=== PATIENT | female | born 1960 | race African-American/Black ===

== ENCOUNTER 2017-06-07 05:33 | Emergency (ER) | payer OTHER ==
[~2017-06-07] VITALS: Ht 170.2 cm; Wt 90.7 kg
[~2017-06-07 05:33] MED LIST: ASPIRIN325 M2 PO; ATORVASTATIN CA40 M1 PO; FLEXERIL10 MG PO; GABAPENTIN300 M2 PO; GLYBURIDE5 M1 PO; INVOKANA300 M1 PO; LOSARTAN POTAS100 M1 PO; METFORMIN HCL500 M3 PO; MOTRIN800 MG PO; NAPROXEN500 M1 PO; OMEPRAZOLE40 M1 PO; PERCOCET 5-3251 EACH PO; PLAVIX75 M1 PO; ZOFRAN ODT4 MG SL
--- NOTE | 2017-06-07 06:21 | ED GI/GU/ABDOMINAL COMPLAINT ---
History of Present Illness General Chief Complaint: Abdominal Pain/Flank Pain Stated Complaint: PT C/O ABD PAIN +N/V/D Source: patient, family, old records Exam Limitations: no limitations Vital Signs & Intake/Output Vital Signs & Intake/Output Vital Signs Date Time Temp Pulse Resp B/P B/P Pulse O2 O2 Flow FiO2 Mean Ox Delivery Rate 06/07 1050 97.9 88 18 178/76 98 Room Air 06/07 0828 98.2 92 18 198/86 96 Room Air 06/07 0555 98 Room Air Room Air 06/07 0548 95.8 108 16 131/85 96 Room Air Room Air Triage Note: 56YO FEMALE TO TRIAGE W/CO "SOUR STOMACH" STATES SHE "HAD N,V,D OVER THE WEEKEND, FELT BETTER BY SATURDAY BUT LAST NIGHT, HAS FEELING OF NAUSEA BUT HAS NOT VOMITED. Triage Nurses Notes Reviewed? yes LMP (ages 10-50): post menopausal ? n Is pt currently ? No Onset: Last week Duration: day(s):, constant, continues in ED, getting worse Timing: recent history Quality/Severity: aching, fullness, moderate, severe, vomiting Location: generalized abdomen Radiation: no radiation Activities at Onset: rest Prior Abdominal Problems: none Modifying Factors: Worsens With: eating. Associated Symptoms: abdominal pain, heartburn, loss of appetite, nausea/ vomiting HPI: 5 days prior to admission patient complains of anorexia nausea vomiting after eating with frequent loose watery stools. She also complains of progressive generalized abdominal pain nonradiating waxing and waning lots of burping gas. She denies fever chills chest pain cough shortness of breath headache dysuria rash bleeding (Stone Carlson MD) Allergies Coded Allergies: NO KNOWN ALLERGIES (NONE 06/07/17) Reconcile Medications Aspirin (Aspirin*) 325 MG TABLET 1 TAB PO DAILY CAD (Reported) Atorvastatin Calcium 40 MG TABLET 1 TAB PO DAILY CHOLESTEROL (Reported) Clopidogrel Bisulfate (Plavix) 75 MG TABLET 1 TAB PO DAILY CARDIAC STENTS ( Reported) Empagliflozin (Jardiance) 10 MG TABLET 1 TAB PO DAILY DIABETES (Reported) Ergocalciferol (Vitamin D2) (Vitamin D2) 2,000 UNIT TABLET 1 TAB PO DAILY VITAMIN SUPPORT (Reported) Exenatide Microspheres (Bydureon Bcise) 2 MG/0.85 ML AUTO.INJCT 1 INJ SC Tu DIABETES (Reported) Gabapentin 300 MG CAPSULE 1 CAP PO 4X PER DAY NEUROPATHY (Reported) Levomefolate/B6/B12/Algal Oil (Metanx Capsule) 3 MG-35 MG-2 MG-90.314 MG CAPSULE 1 CAP PO BID UNKNOWN (Reported) Losartan Potassium 100 MG TABLET 1 TAB PO DAILY HTN (Reported) Metformin HCl 500 MG TABLET 1 TAB PO BID DM II (Reported) Omeprazole 40 MG CAPSULE.DR 1 CAP PO DAILY GERD (Reported) (Poppy CHOUDHARY,Solo Millard) Past History Travel History Traveled to [place] past 21 day No Medical History Any Pertinent Medical History? see below for history Neurological: NONE EENT: NONE Cardiovascular: hypertension, hyperlipidemia Respiratory: NONE Gastrointestinal: GERD Hepatic: NONE Renal: NONE Musculoskeletal: NONE Psychiatric: NONE Endocrine: diabetes Blood Disorders: NONE Cancer(s): NONE PILL COATER/Reproductive: NONE History of MRSA: No History of VRE: No History of CDIFF: No Influenza Vaccine: 12/17/16 Tetanus Vaccine: 12/27/12 Surgical History Surgical History: non-contributory Psychosocial History What is your primary language Comoran Tobacco Use: Current Daily Use Daily Tobacco Use Amount/Type: => 5 Cigarettes daily Family History Hx Contributory? No (Stone Carlson MD) Review of Systems Review of Systems Constitutional: Reports: no symptoms. EENTM: Reports: no symptoms. Respiratory: Reports: no symptoms. Cardiovascular: Reports: no symptoms. GI: Reports: see HPI, abdominal pain, diarrhea, distention, nausea, vomiting. Genitourinary: Reports: no symptoms. Musculoskeletal: Reports: no symptoms. Skin: Reports: no symptoms. Neurological/Psychological: Reports: no symptoms. Hematologic/Endocrine: Reports: no symptoms. Immunologic/Allergic: Reports: no symptoms. All Other Systems: Reviewed and Negative (Stone Carlson MD) Physical Exam Physical Exam General Appearance: well developed/nourished, alert, awake, anxious, moderate distress, obese Head: atraumatic, normal appearance Eyes: Bilateral: normal appearance, PERRL, EOMI, normal inspection. Ears, Nose, Throat, Mouth: hearing grossly normal, dry mucous membranes Neck: normal inspection, supple, full range of motion, normal alignment Respiratory: normal breath sounds, chest non-tender, no respiratory distress, quiet respiration, lungs clear Cardiovascular: regular rate/rhythm, normal peripheral pulses, norml femoral pulses equa Peripheral Pulses: 4+ carotid (R), 4+ carotid (L) Gastrointestinal: soft, non-tender, no organomegaly, distention Back: normal inspection, normal range of motion Extremities: normal range of motion, no ligament instability Neurologic/Psych: no motor/sensory deficits, awake, alert, oriented x 3, normal gait, normal mood/affect Skin: intact, normal color, warm/dry Core Measures ACS in differential dx? No Sepsis Present: No Sepsis Focused Exam Completed? No (Robyn CHOUDHARY,Stone) Progress Differential Diagnosis: appendicitis, biliary colic, cholecystitis, diverticulitis, gastritis, pancreatitis, UTI/pyelo Plan of Care: Orders Procedure Date/time Status URINALYSIS 06/07 804 Complete MAGNESIUM 06/07 602 Complete LIPASE 06/07 602 Complete LACTIC ACID 06/07 602 Complete COMPREHENSIVE METABOLIC PANEL 06/07 602 Complete CBC WITHOUT DIFFERENTIAL 06/07 602 Complete ACETONE 06/07 602 Complete Current Medications Sig/Marlin Start time Last Medication Dose Stop Time Status Admin Clopidogrel Bisulfate 75 MG DAILY 06/07 1000 UNVr 06/07 (Plavix) 1058 Losartan Potassium 100 MG DAILY 06/07 1000 UNVr 06/07 (Cozaar) 1058 Metformin HCl 500 MG BID 06/07 1000 UNVr 06/07 (Glucophage) 1058 Gabapentin 300 MG .[4X PER DAY] 06/07 0900 UNVr (Neurontin) Laboratory Tests 06/07/17 0903: Lactic Acid Cancelled 06/07/17 0807: Urine Color YEL, Urine Clarity CLEAR, Urine pH 6.0, Ur Specific [place] 1.010, Urine Protein NEG, Urine Ketones 15 H, Urine Nitrite NEG, Urine Bilirubin NEG, Urine Urobilinogen 0.2, Ur Leukocyte Esterase NEG, Ur Microscopic EXAM NOT REQUIRED, Urine Hemoglobin NEG, Urine Glucose >=1000 H 06/07/17 0615: Anion Gap 13, Estimated GFR > 60, BUN/Creatinine Ratio 20.0, Glucose 168 H, Lactic Acid 1.0, Calcium 9.6, Magnesium 1.6, Total Bilirubin 0.9, AST 20, ALT 24 , Alkaline Phosphatase 87, Total Protein 7.1, Albumin 3.7, Globulin 3.4, Albumin /Globulin Ratio 1.1, Lipase 64, CBC w Diff MAN DIFF ORDERED, RBC 4.54, MCV 91.9, MCH 29.8, MCHC 32.4 L, RDW 15.4 H, MPV 7.8, Gran % 70.6, Lymphocytes % 18.1 L , Monocytes % 9.0, Eosinophils % 1.8, Basophils % 0.5, Absolute Granulocytes 11.3 H, Segmented Neutrophils 67, Absolute Lymphocytes 2.9, Lymphocytes 18 L, Monocytes 10 H, Absolute Monocytes 1.4 H, Eosinophils 5, Absolute Eosinophils 0.3, Absolute Basophils 0.1, Platelet Estimate ADEQUATE, Polychromasia 1+, Hypochromic-Microcytic 1+, Ovalocytes FEW, Fld Total RBCs Counted 100, Acetone Level NEGATIVE Initial ED EKG: none Hand-Off Endorsed To: Solo Mcwilliams MD Endorsed Time: 0700 Pending: labs, other (diagnostic imaging) (Robyn CHOUDHARY,Stone) Diagnostic Imaging: Discussed w/RAD: CT Scan. Radiology Impression: PATIENT: ANITA VALERO PRESENT AGE: 56 PATIENT ACCOUNT NO: [id number] : 61 LOCATION: [facility] ORDERING PHYSICIAN: Stone Carlson MD SERVICE DATE: 06/07/17 EXAM TYPE: CAT - CT ABD & PELVIS W IV CONTRAST EXAMINATION: CT ABDOMEN AND PELVIS WITH CONTRAST CLINICAL INFORMATION: Nausea and vomiting COMPARISON: None TECHNIQUE: Multidetector volumetric imaging was performed of the abdomen and pelvis following IV administration of 95 mL of Optiray 320 intravenous contrast. Sagittal and coronal reformatted images were obtained on the technologist's workstation. DLP: 547 mGy-cm FINDINGS: LUNG BASES: The visualized lung bases are unremarkable. LIVER, GALLBLADDER, AND BILIARY TREE: The liver is normal in size, shape, and attenuation. No focal hepatic lesion or biliary ductal dilatation is present. The gallbladder is unremarkable with no evidence of radiopaque gallstones, gallbladder wall thickening, or obvious pericholecystic inflammatory changes. PANCREAS: Unremarkable. SPLEEN: Unremarkable. ADRENAL GLANDS: Unremarkable. KIDNEYS AND URETERS: The kidneys are normal in size, shape, and attenuation. No hydronephrosis, hydroureter, or calculi seen. No perinephric stranding. BLADDER: Unremarkable. GASTROINTESTINAL TRACT: Normal caliber bowel loops. No inflammatory changes are seen to the bowel wall or to the mesentery. The appendix lies deep in the right pelvis with no acute findings demonstrated. No mesenteric edema, ascites or fluid collections seen. Stomach is fluid distended without remarkable finding. ABDOMINAL WALL: No significant hernia is appreciated. LYMPH NODES: No adenopathy is demonstrated. VASCULAR: There is aortic calcification. No aneurysm. There are postoperative clips along with soft tissue infiltration in the region of the left common femoral vessels. PELVIC VISCERA: Uterine fibroid. OSSEOUS STRUCTURES: Degenerative changes. No acute or suspicious finding. IMPRESSION: 1. No acute abdominal finding. There are postsurgical changes demonstrated in the region of the left common femoral vessels. DICTATED BY: Carmine Sanchez MD DATE/TIME DICTATED:06/07/17729 FRONT OFFICE SPECIALIST:KHADAR DATE/TIME TRANSCRIBED:06/07/17729 CONFIDENTIAL, DO NOT COPY WITHOUT APPROPRIATE AUTHORIZATION. <Electronically signed in Other Vendor System> SIGNED BY: Carmine Sanchez MD 06/07/1743, PATIENT: ANITA VALERO PRESENT AGE: 56 PATIENT ACCOUNT NO: [id number] : 61 LOCATION: [facility] ORDERING PHYSICIAN: Solo Mcwilliams MD SERVICE DATE: 06/07/17 EXAM TYPE: US - US-LIMITED ABDOMEN EXAMINATION: US ABDOMEN LIMITED CLINICAL INFORMATION: Abdominal pain, nausea, history of diabetes. COMPARISON: CT from earlier today TECHNIQUE: Real-time imaging of the right upper quadrant abdominal viscera. FINDINGS: PANCREAS: The visualized proximal portion of the pancreas is unremarkable. The distal portion is obscured secondary to overlying bowel gas. LIVER: The liver demonstrates normal size, contour and echogenicity. No focal lesion or intrahepatic biliary duct dilatation. GALLBLADDER: The gallbladder is physiologically distended without evidence of stones, sludge, polyps, wall thickening or pericholecystic fluid. COMMON BILE DUCT: Normal in caliber measuring 0.6 cm in diameter. RIGHT KIDNEY: No hydronephrosis. No renal calculi or focal parenchymal lesions. The kidney measures 12.5 cm in maximum dimension. FREE FLUID: None. IMPRESSION: No abnormality demonstrated. DICTATED BY: Hi Martinez MD DATE/TIME DICTATED:08/19 FRONT OFFICE SPECIALIST:KHADAR DATE/TIME TRANSCRIBED:06/07/17947 CONFIDENTIAL, DO NOT COPY WITHOUT APPROPRIATE AUTHORIZATION. <Electronically signed in Other Vendor System> SIGNED BY: Hi Martinez MD 06/07/17 0952 Comments: 06/07/2017 7:23:01 AM patient signed out to me by Dr. Carlson at [employer]. 06/07/2017 8:45:11 AM I have updated body on her test results. Upon reevaluation she does appear uncomfortable sitting up in the stretcher. She is experiencing a bilateral mid to lower quadrant abdominal cramping pain and nausea. She states she has been belching a lot with a very sour taste in her mouth. I will order antiemetics and antacids along with a gallbladder ultrasound. 06/07/2017 11:18:02 AM patient states she vomited in the emergency department despite medications but is now feeling a lot better. She states that she only has some residual discomfort but otherwise wishes to go home. (Poppy CHOUDHARY,Solo Millard) Departure Departure Condition: Stable Referrals: Arturo Donahue MD (PCP/Family) Departure Forms: Customer Survey General Discharge Information (Robyn CHOUDHARY,Stone) Departure Disposition: HOME OR SELF CARE Clinical Impression Primary Impression: Abdominal pain Qualifiers: Abdominal location: lower abdomen, unspecified Qualified Code: R10.30 - Lower abdominal pain, unspecified Secondary Impressions: Nausea, vomiting, and diarrhea Additional Instructions: Reglan as needed for nausea or vomiting, Levsin as needed for abdominal cramps. Zantac as prescribed for additional stomach acid control. Clear liquid diet until feeling better then advance as tolerated. Follow-up with your primary care physician for reevaluation on Saturday. Return if any concerns or sudden worsening. Please note that there might be incidental findings in your evaluation that are unrelated to the current emergency department visit. Please notify your primary care doctor about this emergency department visit in order to obtain and review all of the testing performed so that these incidental findings can be monitored as needed. If you had an x-ray performed, please understand that some fractures may not be seen on the initial set of x-rays. If your symptoms persist you might need a repeat set of x-rays to check for such a fracture. If you had a laceration evaluated, please understand that foreign bodies such as glass or wood may not be visible to the naked eye or on plain x-rays. If the wound becomes red, swollen, increasingly more painful or if there is any drainage from the wound, please have it reevaluated by a physician for the possibility of a retained foreign body. If you're unable to follow up as outlined in the discharge instructions please return to the emergency department. Thank you for choosing the [facility] Emergency Department for your care. It was a pleasure to serve you today. Solo Mcwilliams M.D. [facility] Prescriptions: Current Visit Scripts Metoclopramide HCl (Reglan) 1-2 TAB PO Q6 PRN NAUSEA/VOMITING #20 TAB 30 minutes before meals and bedtime Hyoscyamine (Levsin) 1-2 TAB PO Q6P PRN ABDOMINAL CRAMPS #20 TAB Ranitidine HCl (Zantac) 1 TAB PO QPM #30 TAB (Poppy CHOUDHARY,Solo Millard) Critical Care Note Critical Care Note Critical Care Time: 30-74 min (Poppy CHOUDHARY,Solo Millard) ED Attending Observation Initial Observation Note: I have seen and personally examined ANITA VALERO on 06/07/17 at 0619. I agree with the current emergency department documentation. The disposition (admission or discharge) is uncertain at this time, she needs a period of observation for the following reason(s): The ED Nurse caring for this patient has been personally informed as to what the patient is being observed for. (Robyn CHOUDHARY,Stone)
[2017-06-07 06:25] LABS: ABSOLUTE BASOPHIL COUNT 0.1 /CUMM (0.0-0.2); ABSOLUTE EOSINOPHIL COUNT 0.3 /CUMM (0.0-0.7); ABSOLUTE GRANULOCYTE CT 11.3 /CUMM (1.4-6.5); ABSOLUTE LYMPH COUNT 2.9 /CUMM (1.2-3.4); ABSOLUTE MONOCYTE COUNT 1.4 /CUMM (0.10-0.60); BASOPHIL % 0.5 % (0.0-2.0); EOSINOPHIL % 1.8 % (0-5); GRANULOCYTE % 70.6 % (42.2-75.2); HEMATOCRIT 41.7 % (37-47); MEAN CORPUSCULAR HGB 29.8 PG (27.0-31.0); MEAN CORPUSCULAR HGB CONC 32.4 G/DL (33.0-37.0); MEAN CORPUSCULAR VOLUME 91.9 FL (81.0-99.0); MEAN PLATELET VOLUME 7.8 FL (7.4-10.4); PLATELET COUNT 368 /CUMM (130-400); RBC DISTRIBUTION WIDTH 15.4 % (11.5-14.5); RED BLOOD CELL CT 4.54 /CUMM (4.20-5.40)
--- NOTE | 2017-06-07 07:43 | CT SCAN REPORT ---
EXAMINATION: CT ABDOMEN AND PELVIS WITH CONTRAST CLINICAL INFORMATION: Nausea and vomiting COMPARISON: None TECHNIQUE: Multidetector volumetric imaging was performed of the abdomen and pelvis following IV administration of 95 mL of Optiray 320 intravenous contrast. Sagittal and coronal reformatted images were obtained on the technologist's workstation. DLP: 547 mGy-cm FINDINGS: LUNG BASES: The visualized lung bases are unremarkable. LIVER, GALLBLADDER, AND BILIARY TREE: The liver is normal in size, shape, and attenuation. No focal hepatic lesion or biliary ductal dilatation is present. The gallbladder is unremarkable with no evidence of radiopaque gallstones, gallbladder wall thickening, or obvious pericholecystic inflammatory changes. PANCREAS: Unremarkable. SPLEEN: Unremarkable. ADRENAL GLANDS: Unremarkable. KIDNEYS AND URETERS: The kidneys are normal in size, shape, and attenuation. No hydronephrosis, hydroureter, or calculi seen. No perinephric stranding. BLADDER: Unremarkable. GASTROINTESTINAL TRACT: Normal caliber bowel loops. No inflammatory changes are seen to the bowel wall or to the mesentery. The appendix lies deep in the right pelvis with no acute findings demonstrated. No mesenteric edema, ascites or fluid collections seen. Stomach is fluid distended without remarkable finding. ABDOMINAL WALL: No significant hernia is appreciated. LYMPH NODES: No adenopathy is demonstrated. VASCULAR: There is aortic calcification. No aneurysm. There are postoperative clips along with soft tissue infiltration in the region of the left common femoral vessels. PELVIC VISCERA: Uterine fibroid. OSSEOUS STRUCTURES: Degenerative changes. No acute or suspicious finding. IMPRESSION: 1. No acute abdominal finding. There are postsurgical changes demonstrated in the region of the left common femoral vessels.
[2017-06-07] MEDS ORDERED: JARDIANCE10 M1 PO (08:09)
[2017-06-07] MEDS ORDERED: VITAMIN D22000 UNIT PO (08:10)
[2017-06-07] MEDS ORDERED: BYDUREON B2 MG/0.85 SC (08:11)
[2017-06-07] MEDS ORDERED: METANX CAPSULE1 EACH PO (08:12)
--- NOTE | 2017-06-07 09:52 | ULTRASOUND REPORT ---
EXAMINATION: US ABDOMEN LIMITED CLINICAL INFORMATION: Abdominal pain, nausea, history of diabetes. COMPARISON: CT from earlier today TECHNIQUE: Real-time imaging of the right upper quadrant abdominal viscera. FINDINGS: PANCREAS: The visualized proximal portion of the pancreas is unremarkable. The distal portion is obscured secondary to overlying bowel gas. LIVER: The liver demonstrates normal size, contour and echogenicity. No focal lesion or intrahepatic biliary duct dilatation. GALLBLADDER: The gallbladder is physiologically distended without evidence of stones, sludge, polyps, wall thickening or pericholecystic fluid. COMMON BILE DUCT: Normal in caliber measuring 0.6 cm in diameter. RIGHT KIDNEY: No hydronephrosis. No renal calculi or focal parenchymal lesions. The kidney measures 12.5 cm in maximum dimension. FREE FLUID: None. IMPRESSION: No abnormality demonstrated.
[2017-06-07 10:50] VITALS: BP 178/76
[2017-06-07] MEDS ORDERED: LEVSIN0.125 M1 PO (11:21)
[2017-06-07] MEDS ORDERED: REGLAN10 M1 PO (11:21)
[2017-06-07] MEDS ORDERED: ZANTAC300 MG PO (11:21)
== END 2017-06-07 11:22 ==
LOC: ERH 05:33
PROVIDERS: Emergency Medicine
DX: R10.84 Generalized abdominal pain (principal); R11.2 Nausea with vomiting, unspecified; R19.7 Diarrhea, unspecified
CPT/HCPCS: 74177; 81003; 96361; 96374; 96375; J2405; J2765